=== PATIENT | female | born 1945 | race Caucasian/White ===

== ENCOUNTER 2019-09-23 08:13 | Inpatient (IN) | payer MEDICARE, OTHER ==
[2019-09-23] MEDS ORDERED: NS 0.9% 1000 ML** 1,000 ML IV ONE (08:18)
--- NOTE | 2019-09-23 08:19 | ED ---
Altered Mental Status - HPI Summary HPI Summary: This patient is a 74 year old female brought in by EMS presenting to [facility] with a chief complaint of altered mental status. Per EMS, the patient has had increased confusion and her is trying to get her into a residential. EMS reports associated weakness. Patient does not answer questions appropriately. LEVEL 5 CAVEAT: HPI LIMITED DUE TO AMS - History Of Current Complaint Stated Complaint: GENERAL ILLNESS PER EMS Hx Obtained From: EMS Hx From Patient Unobtainable Due To: Altered Mental Status Character: Confusion - Allergies/Home Medications Allergies/Adverse Reactions: Allergies Allergy/AdvReac Type Severity Reaction Status Date / Time banana Allergy Intermediate Anaphylatic Verified 09/23/19 08:50 Shock Home Medications: Home Medications Memantine HCl 20 mg PO BID 09/23/19 [History Confirmed 09/23/19] Nisoldipine ER (NF) [Sular (NF)] 8.5 mg PO DAILY 09/23/19 [History Confirmed ] QUEtiapine TAB* [Seroquel 25 MG TAB*] 25 mg PO BEDTIME 09/23/19 [History Confirmed 09/23/19] PMH/Surg Hx/FS Hx/Imm Hx Endocrine/Hematology History: Denies: Hx Diabetes Cardiovascular History: Denies: Hx Congestive Heart Failure, Hx Hypertension, Hx Pacemaker/ICD GI History: Reports: Hx Gastroesophageal Reflux Disease - HX OF ACID REFLUX, NO PROBLEMS NOW History: Denies: Hx Renal Disease Sensory History: Reports: Hx Cataracts - BILATERAL, Hx Contacts or Glasses - READING GLASSES Denies: Hx Hearing Aid Opthamlomology History: Reports: Hx Cataracts - BILATERAL, Hx Contacts or Glasses - READING GLASSES Psychiatric History: Denies: Hx Panic Disorder - Surgical History Surgery Procedure, Year, and Place: TONSILS. HYSTERECTOMY. PELVIC ADHESIONS. REMOVAL OF CYST ON LEFT KNEE. RT BICEP TENDON RECONSTRUCTED MIDDLE FINGER RT HAND TENDON REPAIR Hx Anesthesia Reactions: No - Social History Alcohol Use: Occasionally Substance Use Type: Reports: None - Additional Comments History Additional Comments: LEVEL 5 CAVEAT: PMH LIMITED DUE TO AMS Review of Systems Neurological: Other - Altered Mental Status Positive: Weakness All Other Systems Reviewed And Are Negative: No Physical Exam - Summary Physical Exam Summary: VITAL SIGNS: Reviewed. GENERAL: Patient is a well-developed and nourished FEMALE who is lying comfortable in the stretcher. Patient is not in any acute respiratory distress. HEAD AND FACE: No signs of trauma. No ecchymosis, hematomas or skull depressions. No sinus tenderness. EYES: PERRLA, EOMI x 2, No injected conjunctiva, no nystagmus. EARS: Hearing grossly intact. Ear canals and tympanic membranes are within normal limits. MOUTH: Oropharynx within normal limits. NECK: Supple, trachea is midline, no adenopathy, no JVD, no carotid bruit, no c- spine tenderness, neck with full ROM. CHEST: Symmetric, no tenderness at palpation. LUNGS: Clear to auscultation bilaterally. No wheezing or crackles. CVS: Regular rate and rhythm, S1 and S2 present, no murmurs or gallops appreciated. ABDOMEN: Soft, non-tender. No signs of distention. No rebound, no guarding, and no masses palpated. Bowel sounds are normal. EXTREMITIES: FROM in all major joints, no edema, no cyanosis or clubbing. NEURO: Alert. Speech is normal. SKIN: Dry and warm. Triage Information Reviewed: Yes Vital Signs On Initial Exam: Temp Pulse Resp BP Pulse Ox 98.3 F 79 18 124/51 96 09/23/19 08:24 09/23/19 11:00 09/23/19 08:24 09/23/19 10:55 09/23/19 11:00 Vital Signs Reviewed: Yes Procedures - Sedation Patient Received Moderate/Deep Sedation with Procedure: No Diagnostics - Laboratory Result Diagrams: 09/23/19 08:27 09/23/19 08:27 Lab Statement: Any lab studies that have been ordered have been reviewed, and results considered in the medical decision making process. - Radiology CXR Radiology Interpretation Completed By: Radiologist Summary of Radiographic Findings: No radiographic evidence for acute cardiopulmonary abnormality on this portable chest x-ray. ED Provider has reviewed this report. - CT Brain CT Interpretation Completed By: Radiologist Summary of CT Findings: 1. Limited quality examinatino due to motion artifact. 2. Chronic findings inclue appearance consistent with microvascular disease with microvascular disease without definite acute intracranial abnormality. ED Provider reviewed this report. - EKG 0829 Cardiac Rate: NL - 80 BPM EKG Rhythm: Sinus Rhythm Summary of EKG Findings: No ST elevations. ED Physician has reviewed and interpreted this report. Altered Mental Statu Course/Dx - Course Assessment/Plan: This patient is a 74 year old female brought in by EMS presenting to [facility] with a chief complaint of altered mental status. Per EMS, the patient has had increased confusion and her is trying to get her into a residential. EMS reports associated weakness. Patient does not answer questions appropriately. Blood work without any significant abnormality except for glucose 119. Urinalysis is negative for UTI. CXR and head CT no acute pathology. The patient continues to be very confused. The patients unable to care for the patient. I discuss my physical exam and test results with Dr. Smith from the hospitalist services and he agrees to admit the patient to his services. The patient is hemodynamically stable alert and oriented x 3. - Diagnoses Provider Diagnoses: Altered mental status Discharge ED - Sign-Out/Discharge Documenting (check all that apply): Patient Departure - Admission, accepted by Dr. Dong, Hospitalist - Discharge Plan Condition: Stable Disposition: ADMITTED TO [facility] - Billing Disposition and Condition Condition: STABLE Disposition: Admitted to [facility] - Attestation Statements Document Initiated by Kenneth: Yes Documenting Scribe: Suresh Fisher Provider For Whom Kenneth is Documenting (Include Credential): Noble Rasmussen MD Scribe Attestation: I, Suresh Fisher, scribed for Noble Rasmussen MD on 09/23/19 at 1826. Scribe Documentation Reviewed: Yes Provider Attestation: The documentation as recorded by the Suresh briggs accurately reflects the service I personally performed and the decisions made by me, Noble Rasmussen MD Status of Scribe Document: Viewed
[2019-09-23 08:34] LABS: ABS Lymphocytes 1.2 10^3/ul (1.0-4.8); ABS Monocytes 0.5 10^3/ul (0-0.8); ABS Neutrophils 8.6 10^3/ul (1.5-7.7); Eosinophil % 0.2 %; Hematocrit 44 % (35-47); Hemoglobin 14.2 g/dL (12.0-16.0); Lymphocyte % 11.8 %; Mean Corpuscular HGB Conc 33 g/dL (31-36); Mean Corpuscular Hemoglobin 28 pg (27-31); Mean Corpuscular Volume 84 fL (80-97); Mean Platelet Volume 8.6 fL (7.4-10.4); Platelet Count 235 10^3/uL (150-450); Red Blood Count 5.18 10^6 /uL (3.70-4.87); Red Cell Distribution Width 16 % (10-15); White Blood Count 10.3 10^3/uL (3.5-10.8)
[2019-09-23 08:52] LABS: ALT 20 U/L (7-52); AST 17 U/L (13-39); Albumin 4.1 g/dL (3.2-5.2); Albumin/Globulin Ratio 1.6 (1-3); Alkaline Phosphatase 62 U/L (34-104); Anion Gap 7 mmol/L (2-11); Blood Urea Nitrogen 23 mg/dL (6-24); CO2 Carbon Dioxide 28 mmol/L (22-32); Calcium 9.9 mg/dL (8.6-10.3); Chloride 108 mmol/L (101-111); EGFR African American 72.6 (>60); Globulin 2.6 g/dL (2-4); Glucose 119 mg/dL (70-100); Magnesium 2.1 mg/dL (1.9-2.7); Potassium 4.3 mmol/L (3.5-5.0); Sodium 143 mmol/L (135-145); Total Protein 6.7 g/dL (6.4-8.9)
[2019-09-23 09:09] LABS: Acetaminophen < 15 mcg/mL; Alcohol < 10 mg/dL (<10); Salicylate < 2.50 mg/dL (<30)
[2019-09-23 10:59] LABS: Urine Appearance Turbid; Urine Blood 2+ (Negative); Urine Color Straw; Urine Ketones Negative (Negative); Urine Protein 2+(100 mg/dL) (Negative); Urine Urobilinogen Negative (Negative)
[2019-09-23 11:00] LABS: Urine Bilirubin Negative (Negative); Urine Glucose Negative (Negative); Urine Nitrite Negative (Negative)
[2019-09-23] MEDS ORDERED: Acetaminophen TAB* 325 MG PO PRN (12:38)
[2019-09-23 16:27] LABS: Urine Benzodiazepine Screen None Detected (None Detect); Urine Opiates Screen None Detected (None Detect)
--- NOTE | 2019-09-23 17:23 | HP ---
CC: Dr. Palm HISTORY AND PHYSICAL: DATE OF ADMISSION: 09/23/19 TIME OF EVALUATION: 12:15 p.m. PRIMARY CARE PROVIDER: Dr. Palm. CHIEF COMPLAINT: "I cannot care for her anymore" as per . HISTORY OF PRESENT ILLNESS: Ms. Lara is a 74-year-old female with a past medical history of Alzhe lino's, GERD, hypertension, who is brought into the emergency room by EMS as her feels that h e can no longer care for her. He describes she was diagnosed with Alzheimer's about 5 years ago and he has been her main school counselor during this whole time. She has had progressive decline in her cognitive function and also progressi ve weakness, but he states that she was able to transfer and assist with her care. Over the past cou ple months, this is becoming harder and harder. He applied for Medicaid and was starting to look int o nursing homes to place her, but yesterday she got so weak to the point that she could not walk to t he bed and he had to transfer her to the couch where she slept. He states that she has also become incontinent and that it has been very difficult for him to take ca re of that part even though he has aide services for 22 hours a week. He has not noticed any fever, chills, cough, or other symptoms that would justify her weakness. As he no longer can care for her at home, the plan is to have the patient admitted so she can be plac ed in a [facility]. PAST MEDICAL HISTORY: 1. Alzheimer's. 2. Hypertension. 3. GERD. PAST SURGICAL HISTORY: 1. Status post tonsillectomy. 2. Status post hysterectomy. 3. Status post left knee cyst removal. 4. Status post right biceps tendon reconstruction. MEDICATION LIST: 1. Seroquel 25 mg p.o. at bedtime. 2. Memantine 20 mg p.o. b.i.d. 3. Nisoldipine ER 8.5 mg p.o. daily. ALLERGIES: The patient is allergic to banana. FAMILY HISTORY: I am unable to obtain from the patient due to her dementia. SOCIAL HISTORY: I am unable to obtain from the patient due to her confusion, but as per , she does not drink alcohol. No history of tobacco abuse. REVIEW OF SYSTEMS: I am unable to obtain from the patient and it is limited to what the is a ble to answer. All the pertinent negative and positive findings are in the HPI. PHYSICAL EXAMINATION GENERAL: The patient is an elderly lady, pleasantly confused, lying in the ED stretcher, in no acute distress, trying to remove her clothes and her diaper. VITAL SIGNS: Temperature 98.9, heart rate is 85, respiratory rate is 18, oxygen saturation 97% room air, blood pressure 160/90. HEENT: Pupils are equal. Moist mucous membranes. CHEST: Breath sounds present bilaterally with no added sounds. CVS: Normal S1, S2. Regular rate and rhythm. ABDOMEN: Soft. Bowel sounds are present. EXTREMITIES: No edema. NEURO: She is alert, awake, and oriented to self only. Cannot answer questions in a coherent manner . She moves all 4 extremities, but has difficulty following commands. DIAGNOSTIC STUDIES/LAB DATA: CBC showed WBC of 10.3, hemoglobin of 14.2, hematocrit of 44, platelet s of 235 with 82% neutrophils. Chemistry showed a sodium of 143, potassium of 4.3, chloride of 108, bicarb of 28, BUN of 23, creatinine of 0.92, glucose of 119, lactic acid is 0.7, calcium is 9.9. LFT s are normal. Ammonia is 29. Troponin is 0. TSH is 1.7. Vitamin B12 of 293. Urinalysis showed 2+ protein, 2+ blood, and 4+ LE, but nitrites are negative. Salicylates, acetaminop hen, and serum alcohol levels are negative. CT of the brain without contrast was a limited quality examination due to motion artifact. Chronic f indings include appearance consistent with microvascular disease without definite acute intracranial abnormality. Chest x-ray: No radiographic evidence for acute cardiopulmonary abnormality. An EKG done on 09/23/19 at 8:29 a.m. showed sinus rhythm at 80 beats per minute with no acute ischemi c changes. ASSESSMENT AND PLAN: Ms. Weaver is a 74-year-old female with a past medical history of demen tia, hypertension, gastroesophageal reflux disease, who presents to the emergency room brought in by EMS as her can no longer care for her at home, requesting placement in a nursing facility. 1. Alzheimer's dementia. The patient has advanced dementia at this time. I do not see any acute re asons for her decompensation. This appears to be progression of disease. She does not seem to have any signs of infection at this time. No electrolyte imbalances. She will be continued on her Seroqu el and memantine and Case Management will get involved to assist with placement. [facility] would prefer [place] or [place]. The patient's TSH is normal. Her B12 is low normal a nd that will be repleted, but it would not explain her progressive cognitive impairment. 2. Hypertension. We will continue nisoldipine. 3. DVT prophylaxis: The patient has a score of 2 on the DVT Prophylaxis Risk Assessment Guide and s he will have SCDs. 4. Code status was discussed with the and the patient will be a do not resuscitate. A MOLST form was filled up. 5. Physical deconditioning. The patient will be seen by PT and OT. TIME SPENT: Approximately 45 minutes was spent with the 's interview, medical records review, physical examination to complete this admission, more than half of this time was spent [id number] with the patient and coordination of care. [id number]/[facility] #: [id number]
[2019-09-23] MEDS: Cyanocobalamin TAB* 500 MCG PO SCH (17:43)
[2019-09-23] MEDS: QUEtiapine TAB* 25 MG PO SCH (20:29)
[2019-09-23] MEDS: Memantine TAB* 10 MG PO SCH (20:29)
[2019-09-23] MEDS: Nystatin TOP POWDER* 15 GM BTL TOPICAL SCH (22:14)
[2019-09-24] MEDS ORDERED: Influenza VAC *QUAD* 2019-20* 0.5 ML SYRINGE IM ONE (09:00)
[2019-09-24] MEDS: Cyanocobalamin TAB* 500 MCG PO SCH (09:08)
[2019-09-24] MEDS: NISOLDIPINE 8.5 MG PO SCH (09:08)
[2019-09-24] MEDS: Memantine TAB* 10 MG PO SCH ×2 (09:08→20:10)
[2019-09-24] MEDS: Nystatin TOP POWDER* 15 GM BTL TOPICAL SCH ×2 (09:09→23:32)
--- NOTE | 2019-09-24 14:58 | PN ---
Subjective Date of Service: 09/24/19 Interval History: HOSPITALIST PROGRESS NOTE Patient seen and examined at bedside. Care reviewed and d/w Lisa Amaro RN. Pleasantly confused, offers no complaints. Family History: Unchanged from Admission Social History: Unchanged from Admission Past Medical History: Unchanged from Admission Objective Active Medications: Acetaminophen (Tylenol Tab*) 650 mg PO Q6H PRN PRN Reason: MILD PAIN or TEMP > 100.4 Cyanocobalamin (Vitamin B12 Tab*) 1,000 mcg PO DAILY [facility] Last Admin: 09/24/19 09:08 Dose: 1,000 mcg Memantine (Namenda Tab*) 20 mg PO BID [facility] Last Admin: 09/24/19 09:08 Dose: 20 mg Nisoldipine (Sular (Nf)) 8.5 mg PO DAILY [facility]; Protocol Last Admin: 09/24/19 09:08 Dose: 8.5 mg Nystatin (Nystatin Top Powder*) 1 applic TOPICAL BID [facility] Last Admin: 09/24/19 09:09 Dose: 1 applic Quetiapine Fumarate (Seroquel Tab*) 25 mg PO BEDTIME [facility] Last Admin: 09/23/19 20:29 Dose: 25 mg Vital Signs - 8 hr 09/24/19 08:20 Temperature 98.1 F Pulse Rate 79 Respiratory 18 Rate Blood Pressure 148/99 (mmHg) O2 Sat by Pulse 98 Oximetry Oxygen Devices in Use Now: None Appearance: Elderly lady lying in bed in NAD Neurological: - - AAOx1 (self only) Result Diagrams: 09/23/19 08:27 09/23/19 08:27 Microbiology and Other Data: Microbiology 09/23/19 09:45 Urine Culture - Preliminary Urine Escherichia Coli Assess/Plan/Problems-Billing Assessment: Mrs Marco Henriquez is a 74yo F with PMH of Alzheimer's, HTN, GERD, who was brought in to ED as her can no longer care for her at home. - Patient Problems (1) Alzheimer's dementia Comment: - Progressive decliner over months, now incontinent, more confused. - Will need placement. - Continue Memantine and Seroquel. (2) HTN (hypertension) Comment: - Continue Nisoldipine. (3) UTI (urinary tract infection) Comment: - UA was negative for nitrates but urine culture growing E coli >100k. - Will start Cephalexin and follow cultures (4) DVT prophylaxis Comment: - SCDs. (5) DNR (do not resuscitate) Status and Disposition: CM assisting with placement. would prefer [place] or [place].
[2019-09-24] MEDS: Cephalexin CAP* 500 MG PO SCH ×2 (16:13→20:09)
[2019-09-24] MEDS: QUEtiapine TAB* 25 MG PO SCH ×2 (20:09→20:34)
--- NOTE | 2019-09-25 09:29 | PN ---
Subjective Date of Service: 09/25/19 Interval History: HOSPITALIST PROGRESS NOTE Patient seen and examined at bedside. Care reviewed and d/w Lisa Amaro RN. She offers no complaints. Family History: Unchanged from Admission Social History: Unchanged from Admission Past Medical History: Unchanged from Admission Objective Active Medications: Acetaminophen (Tylenol Tab*) 650 mg PO Q6H PRN PRN Reason: MILD PAIN or TEMP > 100.4 Cephalexin HCl (Keflex Cap*) 500 mg PO TID [facility] Last Admin: 09/24/19 20:09 Dose: 500 mg Cyanocobalamin (Vitamin B12 Tab*) 1,000 mcg PO DAILY [facility] Last Admin: 09/24/19 09:08 Dose: 1,000 mcg Memantine (Namenda Tab*) 20 mg PO BID [facility] Last Admin: 09/24/19 20:10 Dose: 10 mg Nisoldipine (Sular (Nf)) 8.5 mg PO DAILY [facility]; Protocol Last Admin: 09/24/19 09:08 Dose: 8.5 mg Nystatin (Nystatin Top Powder*) 1 applic TOPICAL BID [facility] Last Admin: 09/24/19 23:32 Dose: Not Given Quetiapine Fumarate (Seroquel Tab*) 25 mg PO BEDTIME [facility] Last Admin: 09/24/19 20:34 Dose: 25 mg Vital Signs - 8 hr 09/25/19 07:35 Temperature 98.3 F Pulse Rate 83 Respiratory 17 Rate Blood Pressure 146/102 (mmHg) O2 Sat by Pulse 97 Oximetry Oxygen Devices in Use Now: None Appearance: Elderly lady lying in bed in NAD Eyes: No Scleral Icterus Ears/Nose/Mouth/Throat: Mucous Membranes Moist Neck: Trachea Midline Respiratory: Symmetrical Chest Expansion and Respiratory Effort, Clear to Auscultation Cardiovascular: NL Sounds; No Murmurs; No JVD, RRR Abdominal: NL Sounds; No Tenderness; No Distention Neurological: - - AAOx1 (self only), pleasantly confused, RIVERO Result Diagrams: 09/23/19 08:27 09/23/19 08:27 Microbiology and Other Data: Microbiology 09/23/19 09:45 Urine Culture - Preliminary Urine Escherichia Coli Assess/Plan/Problems-Billing Assessment: Mrs Marco Henriquez is a 74yo F with PMH of Alzheimer's, HTN, GERD, who was brought in to ED as her can no longer care for her at home. - Patient Problems (1) Alzheimer's dementia Comment: - Progressive decliner over months, now incontinent, more confused. - Will need placement. - Continue Memantine and Seroquel. (2) HTN (hypertension) Comment: - Continue Nisoldipine. (3) UTI (urinary tract infection) Comment: - UA was negative for nitrates but urine culture growing pansensitive E coli >100k. - Continue Cephalexin #/. (4) DVT prophylaxis Comment: - SCDs. (5) DNR (do not resuscitate) Status and Disposition: CM assisting with placement. would prefer [place] or [place].
[2019-09-25] MEDS: Cephalexin CAP* 500 MG PO SCH ×3 (09:42→19:46)
[2019-09-25] MEDS: Cyanocobalamin TAB* 500 MCG PO SCH (09:43)
[2019-09-25] MEDS: Nystatin TOP POWDER* 15 GM BTL TOPICAL SCH ×2 (09:45→19:46)
[2019-09-25] MEDS: Memantine TAB* 10 MG PO SCH ×2 (09:45→19:46)
[2019-09-25] MEDS ORDERED: amLODIPine TAB* 5 MG PO ONE (10:17)
[2019-09-25] MEDS: NISOLDIPINE 8.5 MG PO SCH (10:34)
[2019-09-25] MEDS: QUEtiapine TAB* 25 MG PO SCH (19:46)
[2019-09-26] MEDS: NISOLDIPINE 8.5 MG PO SCH (07:30)
[2019-09-26] MEDS: Cyanocobalamin TAB* 500 MCG PO SCH (07:31)
[2019-09-26] MEDS: Memantine TAB* 10 MG PO SCH ×2 (07:31→19:34)
[2019-09-26] MEDS: Cephalexin CAP* 500 MG PO SCH ×3 (07:31→19:34)
[2019-09-26] MEDS: Nystatin TOP POWDER* 15 GM BTL TOPICAL SCH ×2 (07:41→19:43)
--- NOTE | 2019-09-26 13:29 | PN ---
Subjective Date of Service: 09/26/19 Interval History: Patient seen at bedside, awake alert disoriented and confused. her at bedside. He is requesting placement and rehab as he is no longer to care for her at home by himself Past Medical History: Unchanged from Admission Objective Active Medications: Acetaminophen (Tylenol Tab*) 650 mg PO Q6H PRN PRN Reason: MILD PAIN or TEMP > 100.4 Cephalexin HCl (Keflex Cap*) 500 mg PO TID [facility] Last Admin: 09/26/19 07:31 Dose: 500 mg Cyanocobalamin (Vitamin B12 Tab*) 1,000 mcg PO DAILY [facility] Last Admin: 09/26/19 07:31 Dose: 1,000 mcg Memantine (Namenda Tab*) 20 mg PO BID [facility] Last Admin: 09/26/19 07:31 Dose: 20 mg Nisoldipine (Sular (Nf)) 8.5 mg PO DAILY [facility]; Protocol Last Admin: 09/26/19 07:30 Dose: 8.5 mg Nystatin (Nystatin Top Powder*) 1 applic TOPICAL BID [facility] Last Admin: 09/26/19 07:41 Dose: 1 applic Quetiapine Fumarate (Seroquel Tab*) 25 mg PO BEDTIME [facility] Last Admin: 09/25/19 19:46 Dose: 25 mg Vital Signs - 8 hr 09/26/19 09/26/19 09/26/19 07:15 08:00 11:54 Temperature 97.7 F 98.1 F Pulse Rate 69 95 Respiratory 18 18 16 Rate Blood Pressure 139/73 121/70 (mmHg) O2 Sat by Pulse 97 100 Oximetry Oxygen Devices in Use Now: None Appearance: Awake, alert disoriented to place, person Eyes: No Scleral Icterus Ears/Nose/Mouth/Throat: NL Teeth, Lips, Gums, Mucous Membranes Moist Neck: NL Appearance and Movements; NL JVP, Trachea Midline Respiratory: Symmetrical Chest Expansion and Respiratory Effort, Clear to Auscultation Cardiovascular: NL Sounds; No Murmurs; No JVD, No Edema Abdominal: NL Sounds; No Tenderness; No Distention Skin: No Rash or Ulcers Neurological: Alert and Oriented x 3 Result Diagrams: 09/23/19 08:27 09/23/19 08:27 Microbiology and Other Data: Microbiology 09/23/19 09:45 Urine Culture - Preliminary Urine Escherichia Coli Assess/Plan/Problems-Billing Assessment: Mrs Marco Henriquez is a 74yo F with PMH of Alzheimer's, HTN, GERD, who was brought in to ED as her can no longer care for her at home. - Patient Problems (1) Alzheimer's dementia Current Visit: Yes Status: Acute Code(s): G30.9 - ALZHEIMER'S DISEASE, UNSPECIFIED; F02.80 - DEMENTIA IN OTH DISEASES CLASSD ELSWHR W/O BEHAVRL DISTURB SNOMED Code(s): 12796989 Comment: - Progressive decliner over months, incontinent and more confused. - Will need placement. - Continue Memantine and Seroquel. (2) HTN (hypertension) Current Visit: Yes Status: Acute Code(s): I10 - ESSENTIAL (PRIMARY) HYPERTENSION SNOMED Code(s): 15451092 Comment: - Continue Nisoldipine. (3) UTI (urinary tract infection) Current Visit: Yes Status: Acute Comment: - UA was negative for nitrates but urine culture growing pansensitive E coli >100k. - Continue Cephalexin #2/5. (4) DVT prophylaxis Current Visit: Yes Status: Acute Code(s): Z29.9 - ENCOUNTER FOR PROPHYLACTIC MEASURES, UNSPECIFIED SNOMED Code(s): 231810780 Comment: - SCDs. Status and Disposition: CM assisting with placement. would prefer [place] or [place].
[2019-09-26] MEDS: QUEtiapine TAB* 25 MG PO SCH (19:34)
[2019-09-27] MEDS: Cyanocobalamin TAB* 500 MCG PO SCH (10:39)
[2019-09-27] MEDS: NISOLDIPINE 8.5 MG PO SCH (10:39)
[2019-09-27] MEDS: Cephalexin CAP* 500 MG PO SCH (10:39)
[2019-09-27] MEDS: Memantine TAB* 10 MG PO SCH (10:40)
[2019-09-27] MEDS: Nystatin TOP POWDER* 15 GM BTL TOPICAL SCH (10:40)
[2019-09-27 11:07] VITALS: BP 112/60
--- NOTE | 2019-09-27 12:51 | DS ---
CC: Dr. Sly Palm DATE OF ADMISSION: 09/23/2019. DATE OF DISCHARGE: 09/27/2019. FINAL DISCHARGE DIAGNOSES: 1. UTI secondary to E. coli. 2. Hypertension. 3. Alzheimer's dementia. HOSPITAL COURSE: The patient came into the hospital by her on September 23 secondary to inability to care for her at home given her underlying dementia. She was brought into the Medical Service. Her initial work-up revealed positive for UTI with E. coli, desai sensitive. She was treated with Cephalosporin, currently on oral Keflex. She was placed under head school custodian care while awaiting placement. She was offered a bed at [facility] for long- term placement and she will be transferred this afternoon for her long-term residence. She was seen and evaluated and deemed stable for discharge. Her hospital course included gentle IV fluid, IV antibiotic with Ceftriaxone and transitioned to oral Keflex. Otherwise her hospital stay was uncomplicated. PHYSICAL EXAMINATION: General: The patient is awake, confused, disoriented. Follows simple commands, but unable to recall the date or time. Disoriented to self and person and situation. Vital Signs: Temperature 98.5, pulse 102, respiratory rate 16, satting 92 to 98 percent, blood pressure 112/60. Lungs: Clear to auscultation bilaterally. Cardiovascular: S1, S2, regular rate and rhythm. Abdomen: Positive bowel sounds, soft, nontender, nondistended. Extremities: No pedal edema. LABORATORY DATA: She had a CBC that was fairly unremarkable. Chemistry was unremarkable. B12 was slightly low and was supplemented. Her B12 was 293. Ammonia was 29. TSH 1.7. Urine analysis shows 4+ leuk esterase and her culture was positive for E. coli greater than 100,000 colony. Drug screen was unremarkable. Urine culture: E. coli greater than 100,000 colonies, desai sensitive. DIAGNOSTIC STUDIES: 1. She had a CT of the brain without contrast dated 09/23/2019 that showed motion artifact, chronic findings, otherwise unremarkable. 2. Chest x-ray: No acute abnormality, no acute pathology. DISCHARGE MEDICATIONS: She was transferred on: 1. Keflex 500 mg t.i.d. for 3 more days. 2. B12 1,000 mcg daily. 3. Tylenol prn. 4. Memantine 20 b.i.d. 5. Nisoldipine ER 8.5 mg daily. 6. Seroquel 25 at bedtime. 7. Nystatin powder. DISCHARGE ACTIVITY: As tolerated, fall precaution. DISCHARGE DIET: Regular. DISCHARGE DISPOSITION: [facility]. CONDITION ON DISCHARGE: Stable. [id number]/[facility] #: [id number] MTDD
[2019-09-28] MEDS ORDERED: NISOLDIPINE 8.5 MG PO SCH (09:00)
== END 2019-09-27 14:00 | DRG 690 ==
LOC: ED 08:13 → MED 12:16 → OBSVTOIN 09-25 11:00
PROVIDERS: ADMIT Internal Medicine; ATTEND Internal Medicine
DX: N39.0 Urinary tract infection, site not specified (principal); G30.9 Alzheimer's disease, unspecified; F02.80 Dementia in other diseases classified elsewhere, unspecified severity, without behavioral disturbance, psychotic disturbance, mood disturbance, and anxiety; B96.20 Unspecified Escherichia coli [E. coli] as the cause of diseases classified elsewhere; K21.9 Gastro-esophageal reflux disease without esophagitis; I10 Essential (primary) hypertension; Z66 Do not resuscitate; Z79.899 Other long term (current) drug therapy; Z91.018 Allergy to other foods
CPT/HCPCS: 36415; 70450; 71045; 80053; 80307; 80320; 80329; 81003; 81015; 82140; 82607; 83605; 83735; 84443; 84484; 85025; 87077; 87086; 87186; 90686; 93005; 99283; A9270-GY; G0378; G0480; G8978-GP-CK; G8978-GP-CL; G8979-GP-CI